=== PATIENT | male | born 1995 | race Hispanic/Latino ===

== ENCOUNTER 2022-03-20 14:42 | Outpatient (CLI) | payer OTHER | END 2022-03-20 14:43 | disposition home or self-care (01) | LOC: BICRAD 14:42 | PROVIDERS: ATTEND Family Medicine | DX: M54.50 Low back pain, unspecified (principal) | CPT/HCPCS: 72100 ==

== ENCOUNTER 2022-07-24 13:58 | Outpatient (CLI) | payer OTHER | END 2022-07-24 13:59 | disposition home or self-care (01) | LOC: BICULT 13:58 | PROVIDERS: ATTEND Family Medicine | DX: N50.812 Left testicular pain (principal); N50.811 Right testicular pain; N44.2 Benign cyst of testis | CPT/HCPCS: 76870; 93976 ==